=== PATIENT | male | born 1945 | race Asian ===

== ENCOUNTER 2017-05-08 10:53 | Emergency (ER) | payer OTHER ==
[~2017-05-08] VITALS: Ht 165.1 cm; Wt 74.4 kg
[2017-05-08 11:16] VITALS: BP 149/70
[2017-05-08] MEDS ORDERED: NITR0.4T2 SL (11:31)
[2017-05-08] MEDS ORDERED: VITD1000 PO (11:31)
[2017-05-08] MEDS ORDERED: ASPI81TA3 PO (11:31)
[2017-05-08] MEDS ORDERED: ATEN100T6 PO (11:31)
[2017-05-08] MEDS ORDERED: LEVO5TAB12 PO (11:31)
[2017-05-08] MEDS ORDERED: ESOM40EC PO (11:31)
[2017-05-08] MEDS ORDERED: FLUT1DSK4 IH (11:31)
[2017-05-08] MEDS ORDERED: GEMF600T5 PO (11:31)
[2017-05-08] MEDS ORDERED: OLOP5SOL OP (11:31)
[2017-05-08] MEDS ORDERED: MEGE40TA4 PO (11:31)
[2017-05-08] MEDS ORDERED: PSE1TAB69 PO (11:31)
--- NOTE | 2017-05-08 12:00 | NUR ---
ER MD DUCKWORTH BY BEDSIDE EXAMINING PT
--- NOTE | 2017-05-08 12:01 | NUR ---
71M BIB SON W C/O DIZZINESS X 4 DAYS; PT STATES THAT WHEN HE MOVES "THE ROOM SPINS"; PT DENIES ANY SOB, CP, OR PAIN AT THIS TIME; PT DENIES ANY RECENT INJURY OR TRUAMA; DENIES N/V/D; SKIN IS PINK/WARM/DRY; AOX4 WITH EVEN AND STEADY GAIT; RR ARE EVEN AND UNLABORED; VSS; PATIENT POSITIONED FOR COMFORT; HOB ELEVATED; BEDRAILS UP X2; ER MD MADE AWARE OF PT STATUS. PT IS NS ON CM. NAD. WILL CONTINUE TO MONITOR.
[2017-05-08] MEDS ORDERED: MECLIZINE 25 MG TAB PO ONE (12:05)
[2017-05-08 13:41] VITALS: BP 138/71
== END 2017-05-08 13:41 | disposition home or self-care (01) ==
LOC: MED 10:53
DX: R42 Dizziness and giddiness (principal); I10 Essential (primary) hypertension; Z90.89 Acquired absence of other organs
CPT/HCPCS: 81002; 93005; 99283; J8597